=== PATIENT | male | born 1975 | race Caucasian/White ===

== ENCOUNTER 2016-12-08 21:36 | Emergency (ER) | payer BC, OTHER ==
--- NOTE | 2016-12-08 22:37 | RAD ---
LEFT HAND THREE VIEWS: 12/08/16 HISTORY: Left hand pain. FINDINGS/IMPRESSION: No fracture or dislocation identified. POS: [facility]
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
[2016-12-09 01:45] LABS: Troponin I Less than 0.010 ng/mL (< 0.028)
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
== END 2016-12-09 02:16 | disposition home or self-care (01) ==
LOC: ERS 21:36
DX: S16.1XXA Strain of muscle, fascia and tendon at neck level, initial encounter (principal); S60.222A Contusion of left hand, initial encounter; I10 Essential (primary) hypertension; Z79.899 Other long term (current) drug therapy; V49.9XXA Car occupant (driver) (passenger) injured in unspecified traffic accident, initial encounter
CPT/HCPCS: 36415; 70450; 71010; 82553; 84484; 93005

== ENCOUNTER 2017-01-17 08:15 | Outpatient (CLI) | payer OTHER ==
--- NOTE | 2017-01-17 13:35 | MRI ---
MRI OF THE LEFT HAND WITHOUT CONTRAST: Date: 01/17/17 INDICATION: Left hand pain. FINDINGS: The scapholunate and lunotriquetral ligaments appear intact. The extrinsic ligaments of the wrist arlette ear intact. No joint effusion is seen within the wrist joint. The TFC appears intact. There is a part ial thickness tear of the ECU tendon at the level of the ulnar carpal joint to the level of the radia l styloid with associated mild tenosynovitis. There is mild fluid distention of the third, second, an d first dorsal compartments of the wrist near the region of the surface marker placed in the region o f interest. The extensor tendons within the remaining compartments appear intact. The flexor tendons are intact. The median nerve is of normal caliber and signal. The ulnar neurovasculature appears with in normal limits. FCR and FCU tendons appear intact. There is a palmaris longus tendon present. IMPRESSION: 1. Split thickness tear of the extensor carpi ulnaris with mild tenosynovitis. 2. Mild tenosynovitis of the third, second, and first dorsal compartments appear nonspecific. POS: [facility]
== END 2017-01-17 08:16 | disposition home or self-care (01) ==
LOC: TBSIIMAG 08:15
PROVIDERS: ATTEND Family Medicine
DX: S63.92XA Sprain of unspecified part of left wrist and hand, initial encounter (principal); M65.832 Other synovitis and tenosynovitis, left forearm

== ENCOUNTER 2017-11-24 15:42 | Outpatient (CLI) | payer OTHER ==
--- NOTE | 2017-11-24 18:41 | MRI ---
MRI CERVICAL SPINE WITHOUT CONTRAST: Date: 11/24/17 HISTORY: Left neck and shoulder pain for a couple of months. COMPARISON: None. TECHNIQUE: Cervical spine MRI is performed without intravenous Gadolinium administration. Multisequential, multi planar imaging is performed. FINDINGS: Appropriate T1 marrow signal intensity of the cervical vertebra. Vertebral body height is maintained. There is no fracture. No significant STIR hyperintensity to suggest vertebral body edema or ligament ous injury. Visualized brain parenchyma, cervicomedullary junction, cervical cord, and the upper thoracic cord angel ve a normal size and signal intensity. C2-C3: No significant disc osteophyte complex. No significant central canal stenosis. Neural foramina are pa tent. C3-C4: No significant disc osteophyte complex. No significant central canal stenosis. Neural foramina are pa tent. C4-C5: No significant disc osteophyte complex. No significant central canal stenosis. Neural foramina are pa tent. C5-C6: No significant disc osteophyte complex. No significant central canal stenosis. Right neural foramen i s patent. Possible mild left foraminal narrowing. Evaluation limited by motion. C6-C7: No significant disc osteophyte complex. No significant central canal stenosis. Neural foramina appear to be patent. C7-T1: No significant central canal stenosis or foramina are patent. IMPRESSION: No significant central canal stenosis or neural foraminal narrowing. POS: [facility]
== END 2017-11-24 15:43 | disposition home or self-care (01) ==
LOC: TBSIIMAG 15:42
PROVIDERS: ATTEND Physical Medicine & Rehabilitation
DX: M54.2 Cervicalgia (principal)
CPT/HCPCS: 72141

== ENCOUNTER 2019-03-01 15:35 | Outpatient (CLI) | payer BC ==
--- NOTE | 2019-03-01 16:51 | MRI ---
Exam: MRI cervical spine without contrast HISTORY: Neck pain. Peripheral neuropathy. Left arm numbness involving the fourth and fifth digit.. COMPARISON: 11/24/2017 FINDINGS: Appropriate T1 marrow signal intensity of the cervical vertebra. Vertebral body height is maintained . No fracture. No significant STIR hyperintensity to suggest vertebral body edema or ligamentous injury Visualized brain parenchyma, cervicomedullary junction, cervical cord and the upper thoracic cord hav e a normal size and signal intensity C2-C3: No significant central canal stenosis or significant neural foraminal narrowing C3-C4: No significant central canal stenosis or significant neural foraminal narrowing C4-C5: Broad-based disc bulge with a minimal central disc protrusion. No significant central canal st enosis. Bilaterally, the neural foramina are patent C5-C6: Broad-based disc bulge with a small central disc protrusion. No significant central canal sten osis. Bilaterally, the neural foramina are patent C6-C7: Central disc herniation without significant central canal stenosis. Bilaterally, neural forami na are patent C7-T1: Mild loss of disc space height. No significant central canal stenosis or significant neural fo raminal narrowing IMPRESSION: No significant central canal stenosis or significant neural foraminal narrowing throughout the cervi balaji spine. Transcribed Date/Time: 03/01/2019 5:42 PM
--- NOTE | 2019-03-01 17:09 | RAD ---
SIX VIEWS OF THE CERVICAL SPINE: 03/01/19 COMPARISON: None. HISTORY: Neck pain with peripheral neuropathy. FINDINGS: Frontal imaging demonstrates normal vertebral body height and alignment. Open mouth odontoid view dem onstrates a normal appearing dens and C1-2 articulation. Neutral lateral exam demonstrates normal cer vical vertebral body height and alignment. Swimmer's lateral view demonstrates normal alignment at th e cervicothoracic junction. The flexion imaging and extension imaging demonstrates no anterolisthesis or retrolisthesis. The C6-7 and C7-T1 levels are not optimally assessed on the flexion or extension views secondary to soft tissue attenuation. IMPRESSION: No acute osseous abnormality. If there are radicular symptoms, MRI may be beneficial. POS: [facility]
== END 2019-03-01 15:36 | disposition home or self-care (01) ==
LOC: TBSIIMAG 15:35
PROVIDERS: ATTEND Surgery
DX: M54.2 Cervicalgia (principal); M25.512 Pain in left shoulder; G62.9 Polyneuropathy, unspecified; G56.92 Unspecified mononeuropathy of left upper limb
CPT/HCPCS: 72050; 72141